=== PATIENT | male | born 1975 | race Caucasian/White ===

== ENCOUNTER 2019-10-13 07:07 | Outpatient (CLI) | payer OTHER, SELFPAY ==
[2019-10-13 07:20] LABS: Basophils Absolute Auto 0.1 K/mm3 (0.0-0.1); Basophils Percent Auto 1.1 % (0.2-1.2); Eosinophils Absolute Auto 0.2 K/mm3 (0-0.3); Eosinophils Percent Auto 2.8 % (0-4.4); Hematocrit 45.8 % (42.0-52.0); Hemoglobin 15.5 g/dL (14.0-18.0); Immature Granulocyte Absolute 0.04 K/mm3 (0.00-0.031); Immature Granulocyte Percent A 0.5 % (0-0.5); Lymphocytes Percent Auto 22.7 % (18.3-44.2); Mean Corpuscular HGB Conc 33.8 g/dl (32-36); Mean Corpuscular Hemoglobin 30.7 pg (26-34); Mean Corpuscular Volume 90.7 fl (80-100); Mean Platelet Volume 12.2 fl (7.4-10.4); Monocytes Absolute Auto 0.8 K/mm3 (0.1-0.6); Monocytes Percent Auto 9.3 % (2.6-8.5); Neutrophils Absolute Auto 5.3 K/mm3 (1.3-6.7); Neutrophils Percent Auto 63.6 % (45.5-73.1); Platelet Count Result 183 k/mm3 (150-375); Red Blood Count 5.05 M/mm3 (4.6-6.20); Red Cell Distribution Width 12.1 % (11.5-14.5); White Blood Count 8.4 K/mm3 (4.5-10.0)
[2019-10-13 07:32] LABS: Alanine Aminotransferase 26 U/L (4-50); Albumin Level 4.5 g/dL (3.5-5.1); Alkaline Phosphatase 82 U/L (38-126); Anion Gap 12.2 mmol/L (7-16); Aspartate Amino Transferase 19 U/L (17-59); Bilirubin,Total 0.6 mg/dL (0.2-1.3); Blood Urea Nitrogen 17 mg/dL (9-20); Calcium 9.8 mg/dL (8.4-10.2); Carbon Dioxide 28 mmol/L (22-30); Chloride 99 mmol/L (98-107); Cholesterol 209 mg/dL (0-200); Estimated Glomerular Filt Rate > 60; Glucose 321 mg/dL (75-110); HDL Direct 43 mg/dL; Potassium 4.2 mmol/L (3.4-5.0); Sodium 135 mmol/L (137-145); Triglycerides 458 mg/dL (<150)
[2019-10-13 07:44] LABS: LDL Cholesterol Direct 88 mg/dL
[2019-10-13 10:54] LABS: Hemoglobin A1C 11.2 % (<5.7)
== END 2019-10-13 07:08 | disposition home or self-care (01) ==
LOC: ANHLAB 07:08
PROVIDERS: PCP Family Medicine; Visit Provider Nurse Practitioner Family
DX: E78.5 Hyperlipidemia, unspecified (principal); I10 Essential (primary) hypertension; Z13.29 Encounter for screening for other suspected endocrine disorder; E11.65 Type 2 diabetes mellitus with hyperglycemia
CPT/HCPCS: 36415; 80053; 80061; 83036; 84443; 85025

== ENCOUNTER 2022-08-30 18:45 | Emergency (ER) | payer OTHER, SELFPAY ==
[2022-08-30 19:06] VITALS: BP 185/106; PULSE 97; RESP 12; TEMP 36.9; O2SAT 96
--- NOTE | 2022-08-30 19:33 | ED.WOUNDLAC ---
HPI - Wound/Laceration General Chief Complaint: Wound/Laceration Stated Complaint: Right Hand Laceration Time Seen by Provider: 08/30/22 19:34 Source: patient Mode of arrival: ambulatory Limitations: no limitations History of Present Illness HPI narrative: 47-year-old male presents for complaint of laceration to the right thumb after injury today. He states he was slicing a reddish with a mandolin when he sliced the tip of his thumb. Endorses large amount of bleeding, continues bleeding. Unsure of his last tetanus vaccination. He denies numbness, tingling, weakness of the extremities. He did not bring the tip of the finger skin. He is scheduled with PCP tomorrow. Related Data Home Medications Medication Instructions Recorded Confirmed Farxiga 1 tab-cap PO DAILY 08/30/22 08/30/22 amlodipine 1 tab-cap PO DAILY 08/30/22 08/30/22 atorvastatin 1 tab-cap PO DAILY 08/30/22 08/30/22 glipizide 10 mg PO DIRECTED 08/30/22 08/30/22 semaglutide 2 mg/dose (8 mg/3 mL) 2 mg subcut DIRECTED 08/30/22 08/30/22 subcutaneous pen injector (Ozempic) Allergies Allergy/AdvReac Type Severity Reaction Status Date / Time empagliflozin Allergy Unknown Unknown Verified 08/30/22 19:36 Review of Systems Review of Systems: CONSTITUTIONAL: Denies body aches, fever, chills, or sweats. EYES: Denies visual changes, redness, or discharge. ENT: Denies rhinorrhea, congestion CARDIOVASCULAR: Denies chest pain, palpitations, or edema. RESPIRATORY: Denies cough or dyspnea. GASTROINTESTINAL: Denies abdominal pain, nausea, vomiting, or diarrhea. SKIN: per HPI MUSCULOSKELETAL: Denies back pain, joint pain, or myalgia. NEUROLOGIC: Denies headache, numbness, tingling, or weakness. COUNTS INCLUDE 234 BEDS AT THE [facility] Past Medical History Medical History (Updated 08/30/22 @ 21:07 by Germaine Monteiro APRN) Essential hypertension Hyperlipidemia Uncontrolled type 2 diabetes mellitus with hyperglycemia Family History Family History Father Family history of malignant neoplasm Family history of diabetes mellitus in first degree relative Social History Social History Second hand tobacco smoke exposure: No Alcohol intake: current Comments At time of signature, I have reviewed and agree with nursing past medical, surgical, social and family history unless otherwise noted. Please see nursing chart for further information. There is no relevant family history pertinent to the presenting complaint Exam Narrative: GENERAL: Well-appearing HEAD: Normocephalic, atraumatic. EYES: conjunctivae clear, and EOMI. ENT: Mucous membranes moist. Oropharynx without edema, erythema or lesions. NECK: Supple. No lymphadenopathy CHEST: Clear to auscultation. HEART: Regular rate and rhythm. SKIN: Warm, dry. Right thumb skin avulsion of distal phalanx, approx 0.75cmx0.5cm, active bleeding; no damage to nail NEURO: Alert and oriented x3. Extrem: Hand/finger images: 1. Right thumb avulsion site approx 0.75cm diameter Course Course Emergency Course: Patient is aware of diagnosis, understands and agrees to treatment plan. Anticipatory guidance given. Patient agrees to follow-up as directed and is aware of reasons to seek care at the emergency department. Portions of this record may have been created with voice recognition software Level of Care: Express Care Visit Vital Signs Vital signs: Vital Signs Temperature 98.5 F 08/30/22 19:06 Pulse Rate 97 08/30/22 19:06 Respiratory Rate 12 08/30/22 19:06 Blood Pressure 185/106 H 08/30/22 19:06 Pulse Oximetry 96 08/30/22 19:06 Oxygen Delivery Room Air 08/30/22 19:06 Temperature 98.5 F 08/30/22 19:06 Pulse Rate 97 08/30/22 19:06 Respiratory Rate 12 08/30/22 19:06 Blood Pressure 185/106 H 08/30/22 19:06 Pulse Oximetry 96 08/30/22 19:06 Oxygen Delivery Room Air 06
[2022-08-30] MEDS: TETANUS,DIPHTHERIA,AC PERTUSSIS ADULT (0.5 ML) BOOSTRIX IM (20:31)
== END 2022-08-30 22:52 | disposition home or self-care (01) ==
PROVIDERS: Emergency Provider Nurse Practitioner Family
DX: S61.001A Unspecified open wound of right thumb without damage to nail, initial encounter (principal); W27.8XXA Contact with other nonpowered hand tool, initial encounter; Z23 Encounter for immunization; I10 Essential (primary) hypertension; E78.5 Hyperlipidemia, unspecified; E11.9 Type 2 diabetes mellitus without complications
CPT/HCPCS: 90471; 90715; 99213; G0463